=== PATIENT | male | born 1995 | race Two or more races ===

== ENCOUNTER 2019-05-11 11:23 | Emergency (ER) | payer MEDICAID, OTHER ==
[~2019-05-11] VITALS: Ht 157.5 cm; Wt 72.6 kg
[2019-05-11] MEDS ORDERED: SODIUM CHLORIDE 0.9% 1,000 ML IV ONE (12:08)
[2019-05-11 13:07] LABS: Eosinophils # (auto) 0 uL; Monocytes # (auto) 1.3 uL; Monocytes % (auto) 10.1 % (0.0-12.0); Nucleated Red Blood Cells % 0.1 %; Red Cell Distribution Width 13.9 % (11.8-14.3)
[2019-05-11 13:09] LABS: Basophils # (auto) 0 uL; Basophils % (auto) 0.4 % (0.0-2.0); Eosinophils % (auto) 0.1 % (0.0-7.0); Hematocrit 44.5 % (41.0-53.0); Hemoglobin 14.9 g/dL (13.5-17.5); Lymphocytes # (auto) 1.8 uL; Lymphocytes % (auto) 13.7 % (10.0-50.0); Mean Corpuscular Hemoglobin 26.6 pg (28.0-32.0); Mean Corpuscular Hgb Conc. 33.5 g/dL (32.0-36.0); Mean Corpuscular Volume 79.5 fL (80.0-100.0); Neutrophils # (auto) 9.7 uL; Neutrophils % (auto) 75.7 % (37.0-80.0); Platelet Count (auto) 252 10^3/uL (140-450); Red Blood Cells 5.59 10^6/uL (4.5-5.90); White Blood Cell 12.8 10^3/uL (4.4-10.8)
[2019-05-11 13:22] LABS: Alanine Aminotransferase 22 U/L (16-61); Albumin 3.3 g/dL (3.4-5.0); Anion Gap 9 (5-15); Aspartate Aminotransferase 16 U/L (15-37); Blood Urea Nitrogen 25 mg/dL (7-18); Calcium 9.4 mg/dL (8.5-10.1); Carbon Dioxide 28 mmol/L (21-32); Chloride 104 mmol/L (98-107); Glucose 94 mg/dL (74-106); Potassium 3.9 mmol/L (3.5-5.1); Sodium 141 mmol/L (136-145)
[2019-05-11 13:27] LABS: Alkaline Phosphatase 83 U/L (45-117); Bilirubin, Total 0.4 mg/dL (0.2-1.0); GFR African American 97 mL/min; GFR Non-African American 80 mL/min; Total Protein 8.2 g/dL (6.4-8.2)
[2019-05-11 14:00] LABS: Urine Bacteria NONE SEEN /hpf (None Seen); Urine Blood 1+ /uL (Negative); Urine Specific Gravity 1.023 (1.001-1.035); Urine WBC 1 /hpf (0 - 3)
[2019-05-11 15:53] VITALS: BP 134/74
[2019-05-11] MEDS ORDERED: IOHEXOL 350 MG/ML 100ML IJ ONE (17:06)
== END 2019-05-11 19:08 | disposition home or self-care (01) ==
LOC: ER 11:27
DX: R07.2 Precordial pain (principal); R22.41 Localized swelling, mass and lump, right lower limb; R80.9 Proteinuria, unspecified; E46 Unspecified protein-calorie malnutrition; R79.1 Abnormal coagulation profile; R00.0 Tachycardia, unspecified; Z86.69 Personal history of other diseases of the nervous system and sense organs; Z88.8 Allergy status to other drugs, medicaments and biological substances
CPT/HCPCS: 36415; 71046; 71275; 73630; 80053; 81001; 83735; 84443; 84484; 85025; 85379; 93005; 93971; 99284; J7030; Q9967